=== PATIENT | male | born 2000 | race Caucasian/White ===

== ENCOUNTER 2018-01-26 15:18 | Inpatient (IN) | payer BC ==
[~2018-01-26] VITALS: Ht 182.9 cm; Wt 97.6 kg
[~2018-01-26 15:18] MED LIST: ABIL5TAB14 PO; LAMO100 PO; LAMO25 PO; LORA-474 PO; PROZ20CA11 PO
[2018-01-26 15:24] VITALS: BP 178/99; PULSE 78; RESP 18; TEMP 99; O2SAT 99
[2018-01-26] MEDS ORDERED: LORA-474 PO (17:00)
[2018-01-26] MEDS ORDERED: PROZ40CA PO (17:00)
[2018-01-26] MEDS ORDERED: LAMO100 PO (17:01)
[2018-01-26] MEDS ORDERED: ABIL10TA8 PO (17:01)
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
[2018-01-26] MEDS ORDERED: IBUPROFEN 800 MG TAB PO ONE (17:45)
[2018-01-26] MEDS ORDERED: CYCLOBENZAPRINE HCL 10 MG TAB PO ONE (17:45)
[2018-01-26 18:00] VITALS: BP 130/69; PULSE 88; RESP 16; TEMP 98.8; O2SAT 99
[2018-01-26 18:06] LABS: AUTOMATED NEUTROPHIL # 4.2 TH/MM3 (1.8-7.7); BASOPHIL # 0.1 TH/MM3 (0-0.2); BASOPHIL % 1.7 % (0.0-2.0); EOSINOPHIL # 0.3 TH/MM3 (0-0.4); EOSINOPHIL % 4.2 % (0.0-4.0); HEMATOCRIT 44.8 % (39.0-51.0); HEMOGLOBIN 15.2 GM/DL (13.0-17.0); LYMPH % 25.5 % (9.0-44.0); LYMPHOCYTE # 1.8 TH/MM3 (1.0-4.8); MEAN CORPUSCULAR HEMOGLOBIN 29.8 PG (27.0-34.0); MEAN CORPUSCULAR HGB CONC 33.9 % (32.0-36.0); MEAN PLATELET VOLUME 7.3 FL (7.0-11.0); MONO % 10.3 % (0.0-8.0); MONOCYTE # 0.7 TH/MM3 (0-0.9); NEUT % 58.3 % (16.0-70.0); PLATELET COUNT 261 TH/MM3 (150-450); RED CELL DISTRIBUTION WIDTH 13.5 % (11.6-17.2); WHITE BLOOD COUNT 7.2 TH/MM3 (4.0-11.0)
[2018-01-26 18:18] LABS: ALBUMIN 4.1 GM/DL (3.4-5.0); ALT (GPT) 19 U/L (9-52); AST (GOT) 21 U/L (15-39); BICARBONATE 27.8 MEQ/L (21.0-32.0); BLOOD UREA NITROGEN 15 MG/DL (7-18); CALCIUM 9.6 MG/DL (8.5-10.1); CHLORIDE 103 MEQ/L (98-107); CREATININE 1.11 MG/DL (0.60-1.30); GLOMERULAR FILTRATION RATE 85 ML/MIN (>89); GLUCOSE,RANDOM 90 MG/DL (74-106); SODIUM (NA) 138 MEQ/L (136-145)
[2018-01-26 18:28] LABS: ALKALINE PHOSPHATASE 81 U/L (45-117); TOTAL BILIRUBIN ADULT 0.3 MG/DL (0.2-1.0); TOTAL PROTEIN 7.9 GM/DL (6.4-8.2)
[2018-01-26 21:37] VITALS: BP 131/57; PULSE 74; RESP 18; TEMP 98; O2SAT 98
[2018-01-26] MEDS ORDERED: ALUMINUM/MAGNESIUM/SIMETH 30 ML CUP PO PRN (23:45)
[2018-01-26] MEDS ORDERED: ACETAMINOPHEN 325 MG TAB PO PRN (23:45)
[2018-01-26] MEDS ORDERED: MAGNESIUM HYDROXIDE SUSP 30 ML CUP PO PRN (23:45)
[2018-01-27 05:55] VITALS: BP 119/53; PULSE 75; RESP 18; TEMP 97.6; O2SAT 99
[2018-01-27 08:36] LABS: CHOLESTEROL 191 MG/DL (120-200)
[2018-01-27 08:39] LABS: HDL CHOLESTEROL 38.2 MG/DL (40.0-60.0); LDL CHOLESTEROL 112 MG/DL (0-99); TRIGLYCERIDES 206 MG/DL (42-150)
[2018-01-27] MEDS: FLUoxetine HCL 20 MG CAP PO SCH (08:53)
[2018-01-27] MEDS: lamoTRIgine 100 MG TAB PO SCH ×3 (08:53→18:21)
[2018-01-27] MEDS ORDERED: FLUoxetine HCL 20 MG CAP PO SCH (10:00)
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
[2018-01-27 12:39] LABS: HEMOGLOBIN A1C 5.5 % (4.3-6.0)
[2018-01-27] MEDS ORDERED: lamoTRIgine 100 MG TAB PO SCH (13:00)
[2018-01-27 17:26] VITALS: BP 146/67; PULSE 94; RESP 18; TEMP 98.3; O2SAT 99
[2018-01-27] MEDS ORDERED: ARIPiprazole 10 MG TAB PO SCH ×2 (21:00)
[2018-01-28 06:06] VITALS: BP 141/70; PULSE 60; RESP 16; TEMP 96.7; O2SAT 97
[2018-01-28] MEDS: FLUoxetine HCL 20 MG CAP PO SCH (08:41)
[2018-01-28] MEDS: lamoTRIgine 100 MG TAB PO SCH (08:41)
[2018-01-28] MEDS ORDERED: ABIL10TA8 PO (08:44)
[2018-01-28] MEDS ORDERED: LAMO100 PO (08:44)
[2018-01-28] MEDS ORDERED: PROZ40CA PO (08:44)
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
== END 2018-01-28 09:40 | disposition home or self-care (01) | DRG 882 ==
LOC: NEPJ 15:18 → NEDA 18:52 → H4EA 20:14
PROVIDERS: ADMIT Psychiatry & Neurology Psychiatry; ATTEND Psychiatry & Neurology Psychiatry
DX: F43.25 Adjustment disorder with mixed disturbance of emotions and conduct (principal); R45.851 Suicidal ideations; F12.10 Cannabis abuse, uncomplicated; F32.9 Major depressive disorder, single episode, unspecified; F90.9 Attention-deficit hyperactivity disorder, unspecified type; F41.9 Anxiety disorder, unspecified
CPT/HCPCS: 80053; 80061; 80307; 83036; 84439; 84443; 85025; 99285